=== PATIENT | female | born 1990 | race Caucasian/White ===

== ENCOUNTER 2021-04-22 08:07 | Emergency (ER) | payer BC ==
[~2021-04-22] VITALS: Ht 157.5 cm; Wt 56.4 kg
[2021-04-22 09:48] VITALS: BP 130/88; PULSE 88; TEMP 98.6
== END 2021-04-22 09:48 | disposition home or self-care (01) ==
LOC: COL.ER 08:07
DX: S83.014A Lateral dislocation of right patella, initial encounter (principal); X50.1XXA Overexertion from prolonged static or awkward postures, initial encounter; Y93.39 Activity, other involving climbing, rappelling and jumping off
CPT/HCPCS: L1846